=== PATIENT | female | born 1980 | race Hispanic/Latino ===

== ENCOUNTER 2024-09-15 19:58 | Emergency (ER) | payer BC, OTHER ==
[~2024-09-15] VITALS: Ht 165.1 cm; Wt 129.7 kg
[2024-09-15 21:09] VITALS: PULSE 71; RESP 18; TEMP 98.3
[2024-09-15 21:49] LABS: BASOPHILS # (AUTO) 0.1 (0.0-0.1); BASOPHILS % 0.4 % (0.0-1.0); EOSINOPHILS # (AUTO) 0.4 (0.0-0.4); EOSINOPHILS % 3.3 % (0.0-6.0); HEMATOCRIT 45.6 % (34.2-44.1); HEMOGLOBIN 14.8 g/dL (12.0-16.0); LYMPHOCYTES # (AUTO) 3.7 (1.0-3.2); LYMPHOCYTES % 33.2 % (18.0-39.1); MEAN CORPUSCULAR HGB CONC 32.5 g/dL (31-35); MEAN CORPUSCULAR VOLUME 86.4 fL (81-99); MONOCYTES # (AUTO) 0.7 (0.2-0.8); MONOCYTES % 6.4 % (4.4-11.3); NEUTROPHILS # (AUTO) 6.1 (2.1-6.9); NEUTROPHILS % 55.1 % (38.7-80.0); PLATELET COUNT 353 x10e3/uL (140-360); RED BLOOD COUNT 5.28 x10e6/uL (3.6-5.1); RED CELL DISTRIBUTION WIDTH 13.3 % (11.7-14.4); WHITE BLOOD COUNT 11.13 x10e3/uL (4.8-10.8)
[2024-09-15 22:09] LABS: ALBUMIN 3.7 g/dL (3.5-5.0); ALBUMIN/GLOBULIN RATIO 0.9 (0.8-2.0); ANION GAP 14.6 mmol/L (8-16); BILIRUBIN,TOTAL 0.6 mg/dL (0.2-1.2); CALCIUM 9.2 mg/dL (8.4-10.2); CREATININE, SERUM 0.74 mg/dL (0.57-1.11); POTASSIUM 3.6 mmol/L (3.5-5.1); TOTAL PROTEIN 7.9 g/dL (6.5-8.1)
[2024-09-15] MEDS: SODIUM CHLORIDE 0.9% 1000ML 1,000 ML IV STA (22:19)
[2024-09-15] MEDS: HYDRALAZINE HCL 20 MG/ML VIAL IV STA (23:05)
[2024-09-16 00:29] VITALS: BP 150/82; O2SAT 96
== END 2024-09-16 00:30 | disposition home or self-care (01) ==
LOC: ER 20:05
DX: R51.9 Headache, unspecified (principal); I10 Essential (primary) hypertension; R42 Dizziness and giddiness
CPT/HCPCS: 36415; 70450; 80053; 85025; 99284; J0360

== ENCOUNTER 2024-11-08 21:02 | Emergency (ER) | payer BC ==
[~2024-11-08] VITALS: Ht 165.1 cm; Wt 129.7 kg
[2024-11-08 21:24] LABS: BASOPHILS % 0.4 % (0.0-1.0); EOSINOPHILS # (AUTO) 0.4 (0.0-0.4); EOSINOPHILS % 3.2 % (0.0-6.0); HEMATOCRIT 41.6 % (34.2-44.1); HEMOGLOBIN 13.6 g/dL (12.0-16.0); LYMPHOCYTES # (AUTO) 3.8 (1.0-3.2); LYMPHOCYTES % 35.1 % (18.0-39.1); MEAN CORPUSCULAR HEMOGLOBIN 28.3 pg (28-32); MEAN CORPUSCULAR HGB CONC 32.7 g/dL (31-35); MEAN CORPUSCULAR VOLUME 86.5 fL (81-99); MONOCYTES # (AUTO) 0.7 (0.2-0.8); MONOCYTES % 6.3 % (4.4-11.3); NEUTROPHILS # (AUTO) 5.7 (2.1-6.9); NEUTROPHILS % 53.1 % (38.7-80.0); PLATELET COUNT 295 x10e3/uL (140-360); RED BLOOD COUNT 4.81 x10e6/uL (3.6-5.1); RED CELL DISTRIBUTION WIDTH 13.9 % (11.7-14.4); WHITE BLOOD COUNT 10.79 x10e3/uL (4.8-10.8)
[2024-11-08 21:39] LABS: ALBUMIN 3.4 g/dL (3.5-5.0); ALBUMIN/GLOBULIN RATIO 0.8 (0.8-2.0); ANION GAP 15.8 mmol/L (8-16); BILIRUBIN,TOTAL 0.4 mg/dL (0.2-1.2); CREATININE, SERUM 0.75 mg/dL (0.57-1.11); POTASSIUM 3.8 mmol/L (3.5-5.1); TOTAL PROTEIN 7.6 g/dL (6.5-8.1)
[2024-11-08 21:44] LABS: TROPONIN I 0.005 ng/mL (0-0.300)
[2024-11-08] MEDS: ASPIRIN 81 MG CHEW TAB PO ONE (23:13)
[2024-11-08 23:37] VITALS: PULSE 76; RESP 18; TEMP 98.6; O2SAT 98
== END 2024-11-08 23:37 | disposition home or self-care (01) ==
LOC: ER 21:09
DX: R06.02 Shortness of breath (principal); R07.89 Other chest pain; R10.9 Unspecified abdominal pain; I10 Essential (primary) hypertension
CPT/HCPCS: 36415; 71045; 80053; 82550; 83690; 83880; 84484; 85025; 85379; 93005; 99284

== ENCOUNTER 2025-03-31 12:53 | Emergency (ER) | payer BC ==
[~2025-03-31] VITALS: Ht 165.1 cm; Wt 124.4 kg
[2025-03-31] MEDS ORDERED: KETOROLAC TROMETHAMINE 60 MG/2 ML VIAL IM ONE (13:15)
[2025-03-31] MEDS ORDERED: HYDROXYZINE HCL10 MG PO (13:28)
[2025-03-31] MEDS ORDERED: LEXAPRO10 MG PO (13:28)
[2025-03-31] MEDS ORDERED: BENICAR20 MG PO (13:28)
[2025-03-31] MEDS ORDERED: MOUNJARO5 MG/0.5 M (13:28)
[2025-03-31] MEDS: ACETAMINOPHEN 325 MG TAB PO ONE (13:57)
[2025-03-31 14:40] VITALS: PULSE 65; RESP 16; TEMP 98.1; O2SAT 97
[2025-03-31] MEDS ORDERED: MECLIZINE HCL12.5 MG PO (15:06)
[2025-03-31] MEDS: MECLIZINE HCL 12.5 MG TAB PO ONE (15:15)
== END 2025-03-31 15:18 | disposition home or self-care (01) ==
LOC: FSED 13:00
DX: S00.83XA Contusion of other part of head, initial encounter (principal); R51.9 Headache, unspecified; R42 Dizziness and giddiness; W20.8XXA Other cause of strike by thrown, projected or falling object, initial encounter; Y92.89 Other specified places as the place of occurrence of the external cause; I10 Essential (primary) hypertension; E11.9 Type 2 diabetes mellitus without complications; F41.9 Anxiety disorder, unspecified; F32.A Depression, unspecified; E66.9 Obesity, unspecified
CPT/HCPCS: 70450; 72125; 99283; J8597